=== PATIENT | female | born 1985 | race Caucasian/White ===

== ENCOUNTER 2024-03-22 01:01 | Day surgery (SDC) | payer OTHER, SELFPAY ==
[2024-03-10 17:06] VITALS: BMI 31.6
--- NOTE | 2024-03-10 17:18 | PC.NURSE ---
Report to the Outpatient Waiting Room, entrance under the green pavilion located off [facility], at time __0830 on date [id number] . Planned Procedure Time: _1030 . Time changes happen often and if your time is changed the preop area will call you the afternoon before. - You and your visitor will be asked to self-screen and do not enter if you have any COVID symptoms. - A mask is optional within the hospital at this time. Patients may have clear liquids (water, carbonated beverages, clear teas, apple juice) until 3 hours prior to surgery with a maximum of 20 ounces. STOP THESE AT 0730. - No food from midnight until time of surgery - Take the following medications with a SIP of water the morning of surgery: Progesterone DO NOT STOP ANY OF YOUR OTHER PRESCRIPTION MEDICATIONS PRIOR TO SURGERY ?EXCEPT THE FOLLOWING: Medications to discontinue per physician _Do not take your phentermine the morning of surgery. Please do not take your weekly Vitamin D on Friday (wait until after surgery) and please hold your Zinc, Inositol and Diindolymethane_for three days, with your last dose to take these on 03-18-2024._ Please no make-up, nail zimbabwean, hairspray, perfume, deodorant, or body powder the day of surgery. No jewelry (including any body piercings) or valuables the day of surgery, leave them at home. Please take a shower or bath the night before, or the morning of, surgery with an antibacterial soap. Wear comfortable, loose fitting clothing. - Jewelry must be removed prior to entering the operating room. Rings and piercings that are not removed may be cut off. - The hospital will not accept responsibility for valuables. - Please leave all valuables, including medications, at home the day of surgery. If you are going home after surgery, a licensed sales route driver must drive you home. - NO public transportation without another adult if you receive anesthesia. - We recommend that an adult stay with you for 24 hours following discharge. - We also recommend that you do not drive, make important decision, drink alcoholic beverages, or take any drugs that were not prescribed by your health care provider for at least 24 hours after your discharge time. Follow any additional instructions given to you from your surgeon. If you or anyone in your household have experienced Covid symptoms in the past week, please notify your surgeon or the nurse liaison at the phone number below for possible testing. Telephone instructions given to ___Cierra (patient) and asked if any additional questions and then verbalized understanding. Patient advised to call surgeon office or pre surgery nurse liaison [phone] if any additional questions.
--- NOTE | 2024-03-22 07:24 | WPDHPUPDATE1 ---
History and Physical Update Update Date/Time: 03/22/24 07:24 History and Physical has been reviewed, including an updated exam of the patient. There are NO changes in the patient's condition. Risks, benefits, and alternatives have been discussed and questions answered. Patient agrees to proceed with procedure.
--- NOTE | 2024-03-22 07:24 | PM.HPGS ---
History of Present Illness History of Present Illness Consent: Risks, benefits, and alternatives have been discussed and questions answered. Patient agrees to proceed with procedure. Chief complaint: Abnormal Uterine Bleeding Narrative: Cierra Hurst is a 38 year old female with prolonged bleeding for over 6 weeks. Patient has been seeing a hormone specialist and been on progesterone. Was recommended to undergo D&C hysteroscopy for further evaluation. Risks of infection, bleeding, perforation, and possible pathology are reviewed. Patient voices understanding and agrees to proceed. Review of Systems Review of Systems: not repeated day of surgery; patient states no changes in status PMFSH Past Medical History Medical History (Updated 03/22/24 @ 07:28 by Mirta Choudhury MD) PCOS (polycystic ovarian syndrome) Surgical History Surgical History (Updated 03/22/24 @ 07:27 by Mirta Choudhury MD) History of x2 Hx of breast reduction, elective Hx of foot surgery left Status post appendectomy Social History Social History Smoking packs per day: 0.5 Smoking cigarettes per day: 10.0 Years smoked: 15 Smoking pack-years: 7.50 Smoking status: Former smoker Tobacco type: cigarettes Second hand tobacco smoke exposure: No Alcohol intake: current Drinks per week: 0 Alcohol use details: rarely drinks Substance use: current Substance use type: marijuana Last use: 2015 Living arrangements: with family Spiritual care concerns: No Meds Home Medications and Allergies Home Medications Medication Instructions Recorded Confirmed Type cholecalciferol (vitamin D3) 1,250 1,250 mcg PO WEEKLY 03/10/24 03/10/24 History mcg (50,000 unit) capsule diindolylmethane-broccoli seed 100 mg PO DAILY 03/10/24 03/10/24 History inositol 500 mg tablet 500 mg PO DAILY 03/10/24 03/10/24 History metformin 500 mg tablet,extended 500 mg PO DAILY 03/10/24 03/10/24 History release 24 hr phentermine 37.5 mg tablet 37.5 mg PO DAILY PRN weight loss 03/10/24 03/10/24 History progesterone micronized 100 mg 100 mg PO DAILY 03/10/24 03/10/24 History capsule spironolactone 100 mg tablet 100 mg PO BID 03/10/24 03/10/24 History zinc citrate, zinc oxide 50 mg 50 mg PO DAILY 03/10/24 03/10/24 History tablet Allergies Allergy/AdvReac Type Severity Reaction Status Date / Time PROCHLORPERAZINE EDISYLATE Allergy Intermediate Nervousness Uncoded 03/10/24 17:08 PROCHLORPERAZINE MALEATE Allergy Intermediate Nervousness Uncoded 03/10/24 17:08 Exam Const: General: healthy appearing and alert Orientation/consciousness: patient oriented x3 Resp: Effort & Inspection: normal respiratory effort : External Female Exam: normal external appearance Speculum Exam - Vagina: normal appearance of the vagina and normal vaginal discharge Speculum Exam - Cervix: normal appearance of the cervix Bimanual exam- vagina & uterus: uterine size normal and consistency normal Bimanual Exam- Adnexa, other: normal adnexae and No adnexal tenderness Neuro: General: patient oriented x3 Assessment and Plan Assessment and plan (1) Menorrhagia: Code(s): N92.0 - Excessive and frequent menstruation with regular cycle Status: Acute Assessment and Plan: plan to proceed with D&C hysteroscopy
--- NOTE | 2024-03-22 08:56 | P.PNAN_ITS ---
Anes - Initial Pre Proc Eval Procedure: Operation Date: 03/22/24 10:30 Proposed Procedures p Hysteroscopy Dilation and Curettage - Mirta Choudhury MD Date/Time: 03/22/24 08:56 Surgeon: Mirta Choudhury MD Pre Op Diagnosis: Abnormal Uterine Bleeding Patient Data Age: 38 Gender: F Height: 1.65 m Weight: 86.2 kg Allergies Allergy/AdvReac Type Severity Reaction Status Date / Time PROCHLORPERAZINE EDISYLATE Allergy Intermediate Nervousness Uncoded 03/10/24 17:08 PROCHLORPERAZINE MALEATE Allergy Intermediate Nervousness Uncoded 03/10/24 17:08 Home Medications Medication Instructions Recorded Confirmed Type cholecalciferol (vitamin D3) 1,250 1,250 mcg PO WEEKLY 03/10/24 03/10/24 History mcg (50,000 unit) capsule diindolylmethane-broccoli seed 100 mg PO DAILY 03/10/24 03/10/24 History inositol 500 mg tablet 500 mg PO DAILY 03/10/24 03/10/24 History metformin 500 mg tablet,extended 500 mg PO DAILY 03/10/24 03/10/24 History release 24 hr phentermine 37.5 mg tablet 37.5 mg PO DAILY PRN weight loss 03/10/24 03/10/24 History progesterone micronized 100 mg 100 mg PO DAILY 03/10/24 03/10/24 History capsule spironolactone 100 mg tablet 100 mg PO BID 03/10/24 03/10/24 History zinc citrate, zinc oxide 50 mg 50 mg PO DAILY 03/10/24 03/10/24 History tablet Patient hx anesthesia problems: none Family hx anesthesia problems: none Results Review: All pre-operative results and documents have been reviewed as part of the pre- operative evaluation. [facility] Past Medical History Medical History (Updated 03/22/24 @ 08:56 by Deric Groves MD) Obesity PCOS (polycystic ovarian syndrome) Surgical History Surgical History History of x2 Hx of breast reduction, elective Hx of foot surgery left Status post appendectomy Social History Social History Smoking packs per day: 0.5 Smoking cigarettes per day: 10.0 Years smoked: 15 Smoking pack-years: 7.50 Smoking status: Former smoker Tobacco type: cigarettes Second hand tobacco smoke exposure: No Alcohol intake: current Drinks per week: 0 Alcohol use details: rarely drinks Substance use: current Substance use type: marijuana Last use: 2015 Living arrangements: with family Spiritual care concerns: No Anes - Eval Final PreProcedure Day of Procedure 03/22/24 08:56 Patient weight: obese Heart: regular rate and rhythm Lungs: clear to auscultation Airway: Mallampati scale class II Neurological: alert and oriented Last oral intake: >/= 8 hours ASA classification: II Emergent: no Anesthetic plan: proceed Anesthesia type and monitoring: general GIVS and standard monitoring Results Review: All pre-operative results and documents have been reviewed as part of the pre- operative evaluation. Informed Consent: The patient's anesthetic plan and its attendant risks and benefits were discussed with the patient/family/POA. Questions were solicited and answers provided to the satisfaction of the patient/family/POA.
[2024-03-22 09:06] VITALS: BP 129/84; PULSE 68; RESP 14; TEMP 35.9; O2SAT 100
--- NOTE | 2024-03-22 09:25 | P.OP_ITS ---
Procedure Note - Detailed Date of Procedure 03/22/24 Pre-op Diagnosis Abnormal Uterine Bleeding Post-op Diagnosis Same Procedure Performed D&C hysteroscopy Surgeon Mirta Choudhury MD Anesthesia MAC Findings uterus sounds to 9cm and appears grossly no Description of Procedure The patient is taken to the operating room and placed under anesthesia in the dorsal lithotomy position. She was prepped and draped in usual sterile fashion. Solgohachia speculum was placed in the vagina and the cervix grasped on the anterior lip with a tenaculum. Uterus is sounded to 9cm. The diagnostic hysteroscope was placed and with no abnormalities noted it is removed. The sharp OO curette is used to curette the endometrium until a good uterine cry was noted in all areas. All instruments are removed. Sponge, needle, and instrument counts are correct per the OR staff. Patient is awakened from anesthesia and taken to recovery in stable condition. Estimated Blood Loss 5 Drains No Packing No Pathology Yes ( Endometrial curettings) Complications No immediate complications Condition Stable Disposition PACU
[2024-03-22 09:28] VITALS: BP 117/66; PULSE 71; RESP 14; O2SAT 97
[2024-03-22] MEDS: LACTATED RINGERS 1,000 ML 30 ML IV CONT (09:28)
[2024-03-22 09:55] VITALS: BP 117/81; PULSE 63; RESP 16; O2SAT 94
[2024-03-22] MEDS: oxyCODONE HCL (*CRX) 5 MG TAB IR PO (10:05)
[2024-03-22 10:25] VITALS: BP 115/78; PULSE 65; RESP 16
== END 2024-03-22 10:40 | disposition home or self-care (01) ==
PROVIDERS: PCP Nurse Practitioner Family; Visit Provider Obstetrics & Gynecology Gynecology
PROC: 0U5B8ZZ Destruction of Endometrium, Via Natural or Artificial Opening Endoscopic (ICD-10-PCS; CPT 58563; principal; 2024-03-22 10:30)
DX: N92.0 Excessive and frequent menstruation with regular cycle (principal); E28.2 Polycystic ovarian syndrome; F12.90 Cannabis use, unspecified, uncomplicated; E66.9 Obesity, unspecified; Z68.32 Body mass index [BMI] 32.0-32.9, adult; Z79.84 Long term (current) use of oral hypoglycemic drugs; Z98.890 Other specified postprocedural states; Z87.891 Personal history of nicotine dependence
CPT/HCPCS: 58558; 88305; A9270; J1100; J2250; J2405; J2704; J7120